=== PATIENT | male | born 1955 | race Caucasian/White ===

== ENCOUNTER → 2016-07-05 | Outpatient (CLI) | payer OTHER ==
[~2016-07-05] VITALS: Ht 185.4 cm; Wt 127.0 kg
[~2016-07-05] MED LIST: ALEV220C2 PO; AMLO25TA PO; ATOR1TAB18 PO; BAYE325T12 PO; CARV3.12 PO; GABA300C3 PO; K-TA10TA2 PO; NS 1,000 ML IV SCH; OMEP20CA3 PO; PROPOFOL 200 MG/20 ML VIAL As Ordered ONE; ZOFR4TAB3 PO
--- NOTE | 2016-07-05 13:40 | ROOR ---
Patient Name: Adams Vega Procedure Date: 07/05/2016 1:25 PM Date of : 1955 Age: 60 Room: [facility] Gender: Male Note Status: Finalized Procedure: Colonoscopy Indications: High risk colon cancer surveillance: Personal history of colonic polyps, Last colonoscopy: April 2013 Providers: Jose ROSENBERG MD Referring MD: GENESIS BARBER MD Requesting Provider: Medicines: Monitored Anesthesia Care Complications: No immediate complications. Procedure: Pre-Anesthesia Assessment: - The heart rate, respiratory rate, oxygen saturations, blood pressure, adequacy of pulmonary ventilation, and response to care were monitored throughout the procedure. The Colonoscope was introduced through the anus and advanced to the terminal ileum, with identification of the appendiceal orifice and IC valve. The colonoscopy was performed without difficulty. The patient tolerated the procedure well. The quality of the bowel preparation was good. Findings: The perianal and digital rectal examinations were normal. Internal hemorrhoids were found during retroflexion. The hemorrhoids were medium-sized. The entire examined colon appeared normal on direct and retroflexion views. Impression: - Internal hemorrhoids. - The entire colon is normal on direct and retroflexion views. - No specimens collected. Recommendation: - Repeat colonoscopy in 5 years for surveillance based on personal history of previous adenomatous polyps. Jose Rosenberg MD Jose ROSENBERG MD 07/05/2016 1:40:18 PM This report has been signed electronically. Number of Addenda: 0 Note Initiated On: 07/05/2016 1:25 PM Estimated Blood Loss: Estimated blood loss: none.
[2016-07-05 14:00] VITALS: BP 161/93
== END | disposition home or self-care (01) ==
LOC: M OPP 11:45
PROVIDERS: ATTEND Internal Medicine Gastroenterology
DX: Z12.11 Encounter for screening for malignant neoplasm of colon (principal); K64.9 Unspecified hemorrhoids; Z80.0 Family history of malignant neoplasm of digestive organs; I10 Essential (primary) hypertension; H47.2 Optic atrophy; M54.2 Cervicalgia; M19.90 Unspecified osteoarthritis, unspecified site; Z88.0 Allergy status to penicillin; Z79.82 Long term (current) use of aspirin; E78.5 Hyperlipidemia, unspecified; M25.552 Pain in left hip; G47.30 Sleep apnea, unspecified; R06.83 Snoring; Z87.891 Personal history of nicotine dependence; Z79.899 Other long term (current) drug therapy; F19.10 Other psychoactive substance abuse, uncomplicated

== ENCOUNTER → 2017-06-15 | Outpatient (CLI) | payer OTHER ==
[2017-06-15 11:01] LABS: HEMATOCRIT 44.3 % (42.0-52.0)
[2017-06-15 11:36] LABS: IRON (FE) 71 UG/DL (65-175); PERCENT SATURATION 20.6 % (19.7-50.0); TOTAL IRON BINDING CAPACITY 344 UG/DL (250-450)
[2017-06-15 11:36] LABS: ALBUMIN 4.7 GM/DL (3.2-5.2)
[2017-06-15 11:40] LABS: ESTIMATED AVERAGE GLUCOSE 128 MG/DL (60-110); HEMOGLOBIN A1c 6.1 %
== END ==
LOC: M LAB 10:16
DX: Z79.899 Other long term (current) drug therapy (principal); M16.9 Osteoarthritis of hip, unspecified
CPT/HCPCS: 82040

== ENCOUNTER → 2017-07-15 | Outpatient (REF) | payer OTHER ==
[2017-07-15 11:55] LABS: BASO % 0.4 % (0.0-1.0); EOS # 0.3 10^3/uL (0.0-0.50); EOS % 3.6 % (0.0-3.0); HEMATOCRIT 43.5 % (42.0-52.0); HEMOGLOBIN 14.2 g/dl (14.0-18.0); IMMATURE GRANULOCYTE % 0.5 % (0-3.0); LYMPH # 1.9 10^3/uL (1.5-4.5); LYMPH % 20.4 % (24.0-44.0); MEAN CORPUSCULAR HEMOGLOBIN 30.1 pg (27.0-33.0); MEAN CORPUSCULAR HGB CONC 32.6 g/dl (32.0-36.5); MEAN CORPUSCULAR VOLUME 92.2 fl (80.0-96.0); MONO # 0.7 10^3/uL (0.0-0.8); MONO % 7.3 % (0.0-5.0); NEUTROPHILS # 6.3 10^3/uL (1.8-7.7); NEUTROPHILS % 67.8 % (36.0-66.0); PLATELET COUNT, AUTOMATED 291 10^3/uL (150-450); RED BLOOD COUNT 4.72 10^6/uL (4.30-6.10); RED CELL DISTRIBUTION WIDTH 12.8 % (11.5-14.5); WHITE BLOOD COUNT 9.3 10^3/uL (4.0-10.0)
[2017-07-15 12:12] LABS: ALBUMIN 4.2 GM/DL (3.2-5.2); ALBUMIN/GLOBULIN RATIO 1.45 (1.00-1.93); ALKALINE PHOSPHATASE 94 U/L (45-117); ALT/SGPT 41 U/L (12-78); ANION GAP 6 MEQ/L (8-16); AST/SGOT 17 U/L (7-37); BILIRUBIN,TOTAL 0.4 MG/DL (0.2-1.0); BLOOD UREA NITROGEN 16 MG/DL (7-18); CALCIUM LEVEL 8.8 MG/DL (8.8-10.2); CARBON DIOXIDE LEVEL 30 MEQ/L (21-32); CHLORIDE LEVEL 107 MEQ/L (98-107); CHOLESTEROL LEVEL 146 MG/DL (<200); CHOLESTEROL RISK RATIO 4.709 (<5); CREATININE FOR GFR 0.79 MG/DL (0.70-1.30); GLOMERULAR FILTRATION RATE > 60.0 (>49); GLUCOSE, FASTING 110 MG/DL (70-100); HDL CHOLESTEROL 31 MG/DL (>40); NON-HDL-C 115 MG/DL; POTASSIUM SERUM 4.7 MEQ/L (3.5-5.1); SODIUM LEVEL 143 MEQ/L (136-145); TOTAL PROTEIN 7.1 GM/DL (6.4-8.2); TRIGLYCERIDES LEVEL 235 MG/DL (<150)
== END ==
LOC: M LABDRAWP 11:41
DX: E78.5 Hyperlipidemia, unspecified (principal); R07.9 Chest pain, unspecified

== ENCOUNTER → 2017-12-10 | Outpatient (CLI) | payer OTHER | LOC: M RAD 09:52 | DX: R20.0 Anesthesia of skin (principal) | CPT/HCPCS: 72141 ==

== ENCOUNTER → 2018-06-13 | Outpatient (CLI) | payer OTHER ==
[~2018-06-13] MED LIST changes: -ATOR1TAB18 PO; +ATOR80TA59 PO; +GABA-843 PO; -GABA300C3 PO; -NS 1,000 ML IV SCH; -PROPOFOL 200 MG/20 ML VIAL As Ordered ONE; +ZOFR4TAB14 PO; -ZOFR4TAB3 PO
[2018-06-13 11:33] LABS: BASO # 0.1 10^3/uL (0.0-0.2); BASO % 0.8 % (0.0-1.0); EOS # 0.4 10^3/uL (0.0-0.50); EOS % 3.6 % (0.0-3.0); HEMATOCRIT 43.3 % (42.0-52.0); HEMOGLOBIN 14.8 g/dl (13.5-17.5); LYMPH # 2.2 10^3/uL (1.5-4.5); LYMPH % 22.2 % (24.0-44.0); MEAN CORPUSCULAR HEMOGLOBIN 31.3 pg (27.0-33.0); MEAN CORPUSCULAR HGB CONC 34.2 g/dl (32.0-36.5); MEAN CORPUSCULAR VOLUME 91.5 fl (80.0-96.0); MONO # 0.9 10^3/uL (0.0-0.8); MONO % 9.4 % (0.0-5.0); NEUTROPHILS # 6.3 10^3/uL (1.8-7.7); NEUTROPHILS % 63.6 % (36.0-66.0); PLATELET COUNT, AUTOMATED 301 10^3/uL (150-450); RED BLOOD COUNT 4.73 10^6/uL (4.30-6.10)
[2018-06-13 11:55] LABS: HEMOGLOBIN A1c 6.2 %
[2018-06-13 12:04] LABS: ALBUMIN 3.9 GM/DL (3.2-5.2); ALT/SGPT 27 U/L (12-78); BILIRUBIN,TOTAL 0.4 MG/DL (0.2-1.0); BLOOD UREA NITROGEN 17 MG/DL (7-18); CALCIUM LEVEL 9.2 MG/DL (8.8-10.2); CARBON DIOXIDE LEVEL 24 MEQ/L (21-32); CHLORIDE LEVEL 107 MEQ/L (98-107); CHOLESTEROL LEVEL 170 MG/DL (<200); CHOLESTEROL RISK RATIO 5.862 (<5); CREATININE FOR GFR 0.83 MG/DL (0.70-1.30); GLOMERULAR FILTRATION RATE > 60.0 (>49); GLUCOSE, FASTING 82 MG/DL (70-100); HDL CHOLESTEROL 29 MG/DL (>40); LDL CHOLESTEROL 102 MG/DL (<100); NON-HDL-C 141 MG/DL; POTASSIUM SERUM 4.3 MEQ/L (3.5-5.1); SODIUM LEVEL 139 MEQ/L (136-145); TRIGLYCERIDES LEVEL 196 MG/DL (<150)
[2018-06-14 16:16] LABS: HEPATITIS C VIRUS ABY INDEX 0.1 INDEX (<0.8)
== END ==
LOC: M LAB 10:56
PROVIDERS: ATTEND Hospitalist
DX: R73.03 Prediabetes (principal)

== ENCOUNTER 2019-02-07 16:24 | Outpatient (RCR) | payer OTHER ==
[~2019-02-07 16:24] MED LIST changes: -OMEP20CA3 PO; +OMEP20CA4 PO
== END 2019-02-19 ==
LOC: M PT 16:24
PROVIDERS: ATTEND Orthopaedic Surgery
DX: Z47.89 Encounter for other orthopedic aftercare (principal); M25.552 Pain in left hip

== ENCOUNTER → 2019-06-25 | Outpatient (CLI) | payer OTHER ==
[~2019-06-25] MED LIST changes: +OMEP1CAP73 PO; -OMEP20CA4 PO
[2019-06-25 08:13] LABS: HEMATOCRIT 45.7 % (42.0-52.0); HEMOGLOBIN 14.5 g/dl (13.5-17.5); MEAN CORPUSCULAR HGB CONC 31.7 g/dl (32.0-36.5); MEAN CORPUSCULAR VOLUME 94.4 fl (80.0-96.0); PLATELET COUNT, AUTOMATED 296 10^3/uL (150-450); RED BLOOD COUNT 4.84 10^6/uL (4.30-6.10); WHITE BLOOD COUNT 9.1 10^3/uL (4.0-10.0)
[2019-06-25 08:41] LABS: ALBUMIN 3.9 GM/DL (3.2-5.2); ALT/SGPT 32 U/L (12-78); BILIRUBIN,TOTAL 0.2 MG/DL (0.2-1.0); BLOOD UREA NITROGEN 12 MG/DL (7-18); CALCIUM LEVEL 8.8 MG/DL (8.8-10.2); CARBON DIOXIDE LEVEL 28 MEQ/L (21-32); CHLORIDE LEVEL 106 MEQ/L (98-107); CHOLESTEROL LEVEL 175 MG/DL (<200); CHOLESTEROL RISK RATIO 5.303 (<5); CREATININE FOR GFR 0.86 MG/DL (0.70-1.30); GLOMERULAR FILTRATION RATE > 60.0 (>49); GLUCOSE, FASTING 97 MG/DL (70-100); HDL CHOLESTEROL 33 MG/DL (>40); LDL CHOLESTEROL 111 MG/DL (<100); NON-HDL-C 142 MG/DL; POTASSIUM SERUM 4.7 MEQ/L (3.5-5.1); SODIUM LEVEL 142 MEQ/L (136-145); TRIGLYCERIDES LEVEL 157 MG/DL (<150)
== END ==
LOC: M LAB 07:05
PROVIDERS: ATTEND Family Medicine
DX: Z00.00 Encounter for general adult medical examination without abnormal findings (principal); E78.5 Hyperlipidemia, unspecified; I10 Essential (primary) hypertension; D50.8 Other iron deficiency anemias

== ENCOUNTER → 2020-04-28 | Outpatient (CLI) | payer SELFPAY | LOC: M LABSMTC 13:15 | PROVIDERS: ATTEND Pediatrics | DX: Z20.828 Contact with and (suspected) exposure to other viral communicable diseases (principal) ==

== ENCOUNTER 2020-10-11 16:40 | Inpatient (IN) | payer OTHER, SELFPAY ==
[~2020-10-11] VITALS: Ht 185.4 cm; Wt 122.1 kg
[~2020-10-11 16:40] MED LIST changes: +GABA-282 PO; -GABA-843 PO
[2020-10-11] MEDS ORDERED: LISI10TA22 PO (16:49)
[2020-10-11] MEDS ORDERED: CLOP75TA2 PO (16:49)
[2020-10-11 17:17] LABS: BASO % 0.1 % (0.0-1.0); EOS % 0.1 % (0.0-3.0); HEMATOCRIT 44.4 % (42.0-52.0); LYMPH # 2.1 10^3/uL (1.5-5.0); LYMPH % 9.3 % (24.0-44.0); MEAN CORPUSCULAR HEMOGLOBIN 31.4 pg (27.0-33.0); MEAN CORPUSCULAR HGB CONC 33.8 g/dl (32.0-36.5); MEAN CORPUSCULAR VOLUME 92.9 fl (80.0-96.0); MONO # 1.5 10^3/uL (0.0-0.8); MONO % 6.8 % (2.0-8.0); NEUTROPHILS # 18.3 10^3/uL (1.5-8.5); NEUTROPHILS % 82.9 % (36.0-66.0); PLATELET COUNT, AUTOMATED 413 10^3/uL (150-450); RED BLOOD COUNT 4.78 10^6/uL (4.30-6.10)
[2020-10-11] MEDS ORDERED: NS 1,000 ML IV SCH (17:25)
[2020-10-11] MEDS ORDERED: ONDANSETRON 4MG/2ML VIAL IV ONE (17:25)
[2020-10-11] MEDS ORDERED: KCL 10MEQ/100ML SWI (KRUN) 10 MEQ in IV 1 EA IV ONE (17:25)
[2020-10-11] MEDS ORDERED: ISOVUE-370 76% 100ML VIAL As Ordered ONE (17:32)
[2020-10-11 17:42] LABS: ALBUMIN 3.8 GM/DL (3.2-5.2); ALT/SGPT 25 U/L (12-78); BILIRUBIN,DIRECT 0.2 MG/DL (0.0-0.2); BILIRUBIN,TOTAL 0.7 MG/DL (0.2-1.0); CK-MB VALUE MASS < 1.0 NG/ML (<3.6); CPK CREATINE PHOSPHOKINASE 278 U/L (39-308); LIPASE 76 U/L (73-393); MB/CK RELATIVE INDEX 0.36 (< OR =4); TOTAL PROTEIN 7.3 GM/DL (6.4-8.2); TROPONIN I 0.03 NG/ML (< 0.10)
[2020-10-11 17:43] LABS: WHITE BLOOD COUNT 22.1 10^3/uL (4.0-10.0)
[2020-10-11 17:46] LABS: INR 1.04; PROTHROMBIN TIME 13.8 SECONDS (12.5-14.3)
--- NOTE | 2020-10-11 18:10 | REPVR ---
PROCEDURE INFORMATION: Exam: CT Abdomen And Pelvis With Contrast Exam date and time: 10/11/2020 5:37 PM Age: 65 years old Clinical indication: Vomiting; Additional info: Intractable vomiting TECHNIQUE: Imaging protocol: Computed tomography of the abdomen and pelvis with contrast. Radiation optimization: All CT scans at this facility use at least one of these dose optimization techniques: automated exposure control; mA and/or kV adjustment per patient size (includes targeted exams where dose is matched to clinical indication); or iterative reconstruction. Contrast material: ISOVUE 370; Contrast volume: 100 ml; Contrast route: INTRAVENOUS (IV); COMPARISON: CT ABD PELVIS WITH CONTRAST 02/10/2016 8:45 PM FINDINGS: Liver: There is a diffuse decrease in hepatic parenchymal density, consistent with steatosis. Gallbladder and bile ducts: Normal. No calcified stones. No ductal dilation. Pancreas: Normal. No ductal dilation. Spleen: Normal. No splenomegaly. Adrenal glands: Normal. No mass. Kidneys and ureters: Normal. No hydronephrosis. Stomach and bowel: There is xebo-ly-jwtvdfnv gastric distention with retained secretions. Clinical correlation to exclude gastroparesis or gastric outlet obstruction suggested. Also noted is a linear air-containing structure within the gastric body measuring 7.4 cm in length. Clinical correlation to exclude the possibility of an ingested foreign body suggested. Appendix: No evidence of appendicitis. Intraperitoneal space: Unremarkable. No free air. No significant fluid collection. Vasculature: Atherosclerotic infrarenal abdominal aorta expanded to 3 cm consistent with a mild aneurysm. Lymph nodes: Unremarkable. No enlarged lymph nodes. Urinary bladder: Unremarkable as visualized. Reproductive: The prostate gland demonstrates mild hyperplasia. Bones/joints: Lumbarized 1st sacral segment. Stable mild compression deformity of T12. Mild central spinal stenosis at L2-L3, severe central spinal stenosis at L3-L4 and L4-L5. Moderate central spinal stenosis with prominent posterior intervertebral osteophytes L5-S1. 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 Soft tissues: There is a small umbilical hernia. There is no evidence of incarceration. IMPRESSION: 1. There is a diffuse decrease in hepatic parenchymal density, consistent with steatosis. 2. There is jziq-pr-uycbaest gastric distention with retained secretions. Clinical correlation to exclude gastroparesis or gastric outlet obstruction suggested. Also noted is a linear air-containing structure within the gastric body measuring 7.4 cm in length. Clinical correlation to exclude the possibility of an ingested foreign body suggested. 3. Atherosclerotic infrarenal abdominal aorta expanded to 3 cm consistent with a mild aneurysm. 4. Mild prostatic hyperplasia. Electronically signed by: Andry Quiroz On 10/11/2020 18:10:04 PM
[2020-10-11] MEDS ORDERED: VITMTA PO (18:45)
[2020-10-11] MEDS ORDERED: CARV6.25 PO (18:45)
--- NOTE | 2020-10-11 19:19 | HPEPDOC ---
[facility] Medical History & Physical Date of Admission October 11, 2020 Date of Service: October 11, 2020 Primary Care Physician: RONEL CAGLE MD Attending Physician: DIANE SALAS MD History and Physical TIME OF SERVICE: 755pm CHIEF COMPLAINT: vomiting HISTORY OF PRESENT ILLNESS: This 65 yr old M begun vomiting yellow / brown fluid 4 days ago; yesterday he felt better and was able to retain some soft food but today he had several episodes of black vomitus (has pictures on his phone) associated with fevers, chills & sweating therefore he decided to come to the hospital. His last BM was on Tue, he denies having abdominal pain, bloody or dark tarry stools. REVIEW OF SYSTEMS: 12-point review of systems negative except as listed in HPI PAST MEDICAL/ SURGICAL HISTORY: essential HTN, CAD w stents (denies ACS), DLP, hepatic steatosis, GERD, BPH, AAA (3cm), obesity, ION (not compliant w CPAP), L hip repair, tonsillectomy w adenoidectomy SOCIAL HISTORY: he uses THC products but denies smoking tobacco or drinking alcohol FAMILY HISTORY: Colon cancer, CAD, DM ALLERGIES: Please see below. HOME MEDICATIONS: Please see below. PHYSICAL EXAMINATION: Vital Signs Date Time Temp Pulse Resp B/P (MAP) Pulse Ox O2 Delivery O2 Flow Rate FiO2 10/11/20 16:41 97.6 115 20 161/98 (119) 97 Room Air GENERAL APPEARANCE: well-nourished and developed / NAD HEENT: EOMI / no scleral icterus / mucus membranes dry CARDIOVASCULAR: tachycardic / NMRG/ no LE edema LUNGS: CTAB on RA ABDOMEN: contour obese/ soft / he doesnt grimace w palpation MUSCULOSKELETAL: NCAT/ CHAVA x 4 INTEGUMENT: not pale flushed or jaundice NEUROLOGICAL: CN 2-12 grossly intact / speech not dysarthric PSYCHIATRIC: A&O x 3/ able to understand and follow all commands LABORATORY DATA: Immature Granulocyte % (Auto) 0.8, Neutrophils (%) (Auto) 82.9H, Lymphocytes (%) (Auto) 9.3L, Monocytes (%) (Auto) 6.8, Eosinophils (%) (Auto) 0.1, Basophils (%) (Auto) 0.1, Neutrophils # (Auto) 18.3H, Lymphocytes # (Auto) 2.1, Monocytes # (Auto) 1.5H, Eosinophils # (Auto) 0.0, Basophils # (Auto) 0.0, Nucleated Red Blood Cells % (auto) 0.0, Total Bilirubin 0.7, Direct Bilirubin 0.2, Aspartate Amino Transf (AST/SGOT) 16, Alanine Aminotransferase (ALT/SGPT) 25, Alkaline Phosphatase 69, Total Creatine Kinase 278, Creatine Kinase MB < 1.0, Creatine Kinase MB Relative Index 0.36, Troponin I 0.03, Total Protein 7.3, Albumin 3.8, Albumin/Globulin Ratio 1.1, Lipase 76 10/11/20 17:12: POC Glucose (Misc Panel) 167H, POC Sodium (Misc Panel) 137, POC Potassium (Misc Panel) 3.2L, POC Chloride (Misc Panel) 97L, POC Total CO2 (Misc Panel) 26.0, POC Blood Urea Nitrogen (Misc Panel 40H, POC Ionized Calcium (Misc Panel) 4.6, POC Creatinine (Misc Panel) 1.1, POC Hematocrit (Misc Panel) 45.0 10/11/20 17:27: Prothrombin Time 13.8, Prothromb Time International Ratio 1.04, Lactic Acid Level 3.6*H IMAGING: CT abd/pelvis IMPRESSION: 1. There is a diffuse decrease in hepatic parenchymal density, consistent with steatosis. 2. There is aktz-rg-nreqpkgs gastric distention with retained secretions. Clinical correlation to exclude gastroparesis or gastric outlet obstruction suggested. Also noted is a linear air-containing structure within the gastric body measuring 7.4 cm in length. Clinical correlation to exclude the possibility of an ingested foreign body suggested. 3. Atherosclerotic infrarenal abdominal aorta expanded to 3 cm consistent with a mild aneurysm. 4. Mild prostatic hyperplasia. MICROBIOLOGY: respiratory panel neg ASSESSMENT: is a 65 yr old w HTN, CAD w stents, DLP, hepatic steatosis, GERD, BPH, AAA (3cm) & obesity who is admitted for evaluation of SIRs vs Sepsis, UGIB & possible gastric outlet obstruction. PLAN: 1 SIRs vs Sepsis 2/2 GI source SIRS criteria: HR >90 / WBC >12 Lactic acid >2 Plan: admit to med surg qSOFA score = 0 not high risk / telemetry / repeat lactic acid / Meropenem / switch to lactate ringers /f/u blood cx, UA w culture / Acetaminophen PRN for fever / target MAP at of least 65 to 70 / f/u Is and Os with target UOP of at least 0.5 ml/kg/H / f/u FSBS w target serum glucose 140- 180 while acutely ill 2 UGIB May be due to: stomach CA, PUD, or other condition TBD -[place]-Blatch[place] Score to identify low risk UGIB = 5 points = A GBS greater than zero suggests a High Risk GI bleed that is likely to require medical interventionnsfusion, endoscopy, or surgery. Plan: ask RNs to place 2 large bore IVs & check orthostats / start PPI 40mg IV BID for 72 H, then switch to PO after 72 H (to decrease rate of re-bleeding) / start octreotide drip (he has a hx of alcohol use) / trend Hg (keep Hg >8 bc of hx of CAD) / type & screen, f/u iron studies / check H pylori stool antigen (if it is positive he will need to c/w PPIs along with bismuth, metronidazole and tetracycline (PBMT) or PPI, amoxicillin, metronidazole and clindamycin (P[facility]) for 14 days total) / hold Plavix / f/u w Gen Surg for upper GI series and EGD 3 Gastric outlet obstruction ? Plan: NPO w IVF / NG to LIS / omeprazole 4 Essential HTN Plan: Atorvastatin 5 CAD w stents / DLP Plan: Atorvastatin 6 Obesity Complicates care Plan: f/u A1C / the patient can f/u w his PCP for sleep apnea screening, nurse case manager consult, to discuss staring Saxenda, which is indicated in patients with a BMI >27 with co-existing DM, HTN or dyslipidemia to help with weight control as an adjunct to exercise DVT px w SCDs bc of UGIB Dispo: home after at least 2 midnights stay Home Medications Scheduled Atorvastatin Calcium (Atorvastatin Calcium) 80 Mg Tab, 80 MG PO DAILY Carvedilol (Carvedilol) 6.25 Mg Tablet, 6.25 MG PO BID Clopidogrel Bisulfate (Clopidogrel) 75 Mg Tablet, 75 MG PO DAILY Lisinopril (Lisinopril) 10 Mg Tablet, 10 MG PO DAILY Multivitamins (Thera M Plus Tablet) 1 Each Tablet, 1 TAB PO DAILY Allergies Coded Allergies: Penicillins (Verified Allergy, Unknown, 10/11/20) A-FIB/CHADSVASC A-FIB History Current/History of A-Fib/PAF?: No Current PO Anticoag Therapy: No DIANE SALAS MD October 11, 2020 19:19
[2020-10-11] MEDS ORDERED: ACETAMINOPHEN TAB 650MG DOSE (2X325MG) PO PRN (19:20)
[2020-10-11] MEDS: LR 1,000 ML IV SCH (19:20)
[2020-10-11 19:24] LABS: RSV AMPLIFICATION NEGATIVE (NEGATIVE)
[2020-10-11 20:40] LABS: INR 1.06
[2020-10-11] MEDS ORDERED: OCTREOTIDE ACETATE 100MCG/ML VIAL (J2354 PER 25MCG) IV ONE (21:15)
[2020-10-11] MEDS ORDERED: OCTREOTIDE ACETATE 1,200 MCG in NS 238.8 ML IV SCH (21:45)
[2020-10-11 22:00] VITALS: BP 140/93
[2020-10-11] MEDS ORDERED: HEPARIN SOD (PORCINE) 5000UNITS/ML 1ML VIAL/SYRINGE SC SCH (22:00)
[2020-10-11] MEDS: MEROPENEM INJ 1 GM in IV 1 EA IV SCH ×2 (22:21→23:14)
[2020-10-11] MEDS: CARVedilol 6.25 MG TAB PO SCH (22:22)
[2020-10-11] MEDS: PANTOPRAZOLE 40MG VIAL (C9113 PER 1) IV SCH (22:22)
[2020-10-11] MEDS: ONDANSETRON 4MG/2ML VIAL IV PRN (22:31)
[2020-10-11] MEDS: SUCRALFATE 1 GM TAB PO SCH (23:14)
[2020-10-12 00:15] VITALS: BP_SYST 154; BP_SYST 164; BP_SYST 174; BP_DIAS 100; BP_DIAS 101; BP_DIAS 84
[2020-10-12] MEDS: LR 1,000 ML IV SCH ×3 (05:17→20:55)
[2020-10-12] MEDS: SUCRALFATE 1 GM TAB PO SCH ×4 (05:29→23:47)
[2020-10-12 06:00] VITALS: BP 148/90
--- NOTE | 2020-10-12 06:23 | REPVR ---
PROCEDURE INFORMATION: Exam: XR Chest Exam date and time: 10/12/20 (3:43am) Age: 65 years old Clinical indication: Confirm NG tube position TECHNIQUE: Imaging protocol: Portable CXR Views: 1 view COMPARISON: Abdomen plain films + CXR of 02/10/16 FINDINGS: Lungs: No consolidation. Minimal linear stranding near the left lung base (probable atelectasis and/or scarring). Pleural spaces: Unremarkable. No pleural effusions. No pneumothorax. Heart/Mediastinum: Unremarkable. No cardiomegaly. Bones/joints: Unremarkable. Other findings: Enteric tube faintly seen, with its tip in the proximal stomach. The distal side hole is probably at or just beyond the E-G junction level. IMPRESSION: Minimal nonspecific linear stranding near the left lung base (see comments above). No consolidation. Enteric tube faintly seen, with its tip in the proximal stomach. The distal side hole is probably at or just beyond the E-G junction level. Electronically signed by: Joan Menard On 10/12/2020 06:22:27 AM
[2020-10-12 06:45] LABS: HEMATOCRIT 38.6 % (42.0-52.0); HEMOGLOBIN 12.9 g/dl (13.5-17.5); MEAN CORPUSCULAR HEMOGLOBIN 31.5 pg (27.0-33.0); MEAN CORPUSCULAR HGB CONC 33.4 g/dl (32.0-36.5); MEAN CORPUSCULAR VOLUME 94.4 fl (80.0-96.0); PLATELET COUNT, AUTOMATED 294 10^3/uL (150-450); RED BLOOD COUNT 4.09 10^6/uL (4.30-6.10); WHITE BLOOD COUNT 17.4 10^3/uL (4.0-10.0)
[2020-10-12 06:53] LABS: BLOOD UREA NITROGEN 34 MG/DL (7-18); CALCIUM LEVEL 8.2 MG/DL (8.8-10.2); CARBON DIOXIDE LEVEL 29 MEQ/L (21-32); CHLORIDE LEVEL 105 MEQ/L (98-107); CREATININE FOR GFR 0.86 MG/DL (0.70-1.30); GLOMERULAR FILTRATION RATE > 60.0 (>49); GLUCOSE, FASTING 126 MG/DL (70-100); POTASSIUM SERUM 3.7 MEQ/L (3.5-5.1); SODIUM LEVEL 142 MEQ/L (136-145)
[2020-10-12 06:54] LABS: HEMOGLOBIN A1c 5.8 %
[2020-10-12 07:29] LABS: BASO % 0.2 % (0.0-1.0); EOS % 0.1 % (0.0-3.0); HEMATOCRIT 38.7 % (42.0-52.0); LYMPH # 2.6 10^3/uL (1.5-5.0); LYMPH % 15.4 % (24.0-44.0); MEAN CORPUSCULAR HEMOGLOBIN 31.5 pg (27.0-33.0); MEAN CORPUSCULAR HGB CONC 33.6 g/dl (32.0-36.5); MEAN CORPUSCULAR VOLUME 93.7 fl (80.0-96.0); MONO # 1.5 10^3/uL (0.0-0.8); MONO % 8.5 % (2.0-8.0); NEUTROPHILS # 12.8 10^3/uL (1.5-8.5); NEUTROPHILS % 75.3 % (36.0-66.0); PLATELET COUNT, AUTOMATED 323 10^3/uL (150-450); RED BLOOD COUNT 4.13 10^6/uL (4.30-6.10)
--- NOTE | 2020-10-12 07:48 | ECGEPIP ---
[facility] - ED Test Date: 2020-10-11 Pat Name: INDIRA MCCURDY Department: Room: - Gender: Male Material Requirements Planning Manager: LEIDA : 1955 Requested By: Karen Arndt Order Number: [id number] Reading MD: Gregory Vickers Measurements Intervals [place] Rate: 101 P: 53 GA: 160 QRS: 11 QRSD: 94 T: 59 QT: 368 QTc: 477 Interpretive Statements Sinus tachycardia Inferior infarct , age undetermined POSSIBLE INCOMPLETE RIGHT BUNDLE BRANCH BLOCK NO PRIORS FOR COMPARISON Electronically Signed on 10-12-2020 7:48:04 EDT by Gregory Vickers
[2020-10-12 07:51] LABS: ALBUMIN 3.5 GM/DL (3.2-5.2); ALT/SGPT 22 U/L (12-78); BILIRUBIN,TOTAL 0.6 MG/DL (0.2-1.0); BLOOD UREA NITROGEN 34 MG/DL (7-18); CALCIUM LEVEL 8.3 MG/DL (8.8-10.2); CARBON DIOXIDE LEVEL 29 MEQ/L (21-32); CHLORIDE LEVEL 105 MEQ/L (98-107); CREATININE FOR GFR 0.87 MG/DL (0.70-1.30); GLOMERULAR FILTRATION RATE > 60.0 (>49); GLUCOSE, FASTING 131 MG/DL (70-100); POTASSIUM SERUM 3.4 MEQ/L (3.5-5.1); SODIUM LEVEL 140 MEQ/L (136-145); TOTAL PROTEIN 6.6 GM/DL (6.4-8.2)
[2020-10-12] MEDS ORDERED: MEROPENEM INJ 2 GM in NS 100 ML IV SCH (09:00)
[2020-10-12] MEDS: PANTOPRAZOLE 40MG VIAL (C9113 PER 1) IV SCH ×2 (09:54→21:19)
[2020-10-12] MEDS: CARVedilol 6.25 MG TAB PO SCH ×2 (09:54→21:19)
[2020-10-12] MEDS: ONDANSETRON 4MG/2ML VIAL IV PRN ×2 (12:44→17:32)
[2020-10-12 14:00] VITALS: BP 113/63
--- NOTE | 2020-10-12 14:17 | IPNPDOC ---
Text Note Date of Service The patient was seen on 10/12/20. NOTE GENERAL APPEARANCE: well-nourished and developed, NAD HEENT: EOMI, anicterus, moist mucus membranes CARDIOVASCULAR: RRR, no m/r/g LUNGS: CTAB on RA ABDOMEN: Obese, soft, NTND EXT: WWP, no LE edema NEUROLOGICAL: CN 2-12 grossly intact, speech not dysarthric, moving all 4 extre mities with full strength and no noted asymmetrical weakness PSYCHIATRIC: A&O x 3, able to understand and follow all commands LABORATORY DATA: WBC 17 Hgb 13. platelets 323 na 140 K 3.4 (repleted in fluids) Cr 0.87 IMAGING: CT abd/pelvis: 1. There is a diffuse decrease in hepatic parenchymal density, consistent with steatosis. 2. There is dciq-da-ehuuhkyk gastric distention with retained secre tions. Clinical correlation to exclude gastroparesis or gastric outlet obstruction suggested. Also noted is a linear air-containing structure within the gastric body measuring 7.4 cm in length. Clinical correlation to exclude the possibility of an ingested foreign body suggested. 3. Atherosclerotic infrarenal abdominal aorta expanded to 3 cm consistent with a mild aneurysm. 4. Mild prostatic hyperplasia. MICROBIOLOGY: respiratory panel neg ASSESSMENT: is a 65 yr old w HTN, CAD w stents, DLP, hepatic steatosis, GERD, BPH, AAA (3cm) & obesity who is admitted for evaluation of SIRs vs Sepsis, UGIB & possible gastric outlet obstruction. PLAN: 1 SIRs vs Sepsis 2/2 GI source SIRS criteria: HR >90 / WBC >12 Lactic acid >2 -was placed on Meropenem due to allergies, will continue for now -will dc LR at this time -f/u blood cx -Acetaminophen PRN for fever 2 Potential UGIB -Possibly due to gastritis, given history of GERD, PUD, or other more concern pathology such as malignancy -Surgery consulted given the CT findings above, suggested upper GI series for gastric outlet obstruction investigation and will place on clears and closely monitor for UGIB and BID H/H for potential need for urgent EGD -hold Plavix 3 Potential gastric outlet obstruction? -BID PPI IV -clears diet -sucralfate QID -DC octreotide gtt -DC NGT -Dr. Cano consulted, pending upper GI series on 10/13 4 Essential HTN -continue home med 5 CAD w stents / DLP -Atorvastatin -Need to discuss when he had the last stent placed and the type of stent to assess the risk of holding his plavix 6 Obesity Complicates care Plan: f/u A1C / the patient can f/u w his PCP for sleep apnea screening, base draw operator consult, to discuss staring Saxenda, which is indicated in patients with a BMI >27 with co-existing DM, HTN or dyslipidemia to help with weight control as an adjunct to exercise DVT px w SCDs bc of UGIB Dispo: home after at least 2 midnights stay VS,Fishbone, I+O VS, Fishbone, I+O Laboratory Tests 10/11/20 17:08 10/11/20 23:04 10/12/20 05:28 10/12/20 07:13 Vital Signs Date Time Temp Pulse Resp B/P (MAP) Pulse Ox O2 Delivery O2 Flow Rate FiO2 10/12/20 06:00 97.5 86 20 148/90 (109) 95 Room Air I&O- Last 24 Hours up to 6 AM 10/12/20 06:00 Intake Total 2425 ml Output Total 850 ml Balance 1575 ml DENNY MINER MD October 12, 2020 09:36
[2020-10-12] MEDS: MEROPENEM INJ 1 GM in IV 1 EA IV SCH ×2 (21:19→22:07)
[2020-10-12 22:00] VITALS: BP 157/82
[2020-10-13] MEDS: LR 1,000 ML IV SCH ×3 (05:16→22:00)
[2020-10-13] MEDS: SUCRALFATE 1 GM TAB PO SCH ×3 (05:37→17:59)
[2020-10-13 06:00] VITALS: BP 154/82
[2020-10-13 07:18] LABS: HEMATOCRIT 34.4 % (42.0-52.0); HEMOGLOBIN 11.2 g/dl (13.5-17.5); MEAN CORPUSCULAR HEMOGLOBIN 30.9 pg (27.0-33.0); MEAN CORPUSCULAR HGB CONC 32.6 g/dl (32.0-36.5); MEAN CORPUSCULAR VOLUME 94.8 fl (80.0-96.0); PLATELET COUNT, AUTOMATED 282 10^3/uL (150-450); RED BLOOD COUNT 3.63 10^6/uL (4.30-6.10); WHITE BLOOD COUNT 12.6 10^3/uL (4.0-10.0)
[2020-10-13 07:39] LABS: BLOOD UREA NITROGEN 19 MG/DL (7-18); CALCIUM LEVEL 8.3 MG/DL (8.8-10.2); CARBON DIOXIDE LEVEL 29 MEQ/L (21-32); CHLORIDE LEVEL 109 MEQ/L (98-107); CREATININE FOR GFR 0.73 MG/DL (0.70-1.30); GLOMERULAR FILTRATION RATE > 60.0 (>49); GLUCOSE, FASTING 91 MG/DL (70-100); POTASSIUM SERUM 3.8 MEQ/L (3.5-5.1); SODIUM LEVEL 143 MEQ/L (136-145)
[2020-10-13] MEDS ORDERED: E-Z-GAS II EFFERVESCENT PACKET (SODIUM BICARB./CITRIC ACID/SIMETHICONE) As Ordered ONE (09:51)
[2020-10-13] MEDS ORDERED: E-Z-PAQUE 96% w/w SUSP 176GM BTL As Ordered ONE (09:51)
[2020-10-13] MEDS ORDERED: E-Z-HD 98% w/w 340GM SUSP BTL As Ordered ONE (09:52)
[2020-10-13] MEDS: CARVedilol 6.25 MG TAB PO SCH ×2 (10:48→21:11)
[2020-10-13] MEDS: PANTOPRAZOLE 40MG VIAL (C9113 PER 1) IV SCH ×2 (10:49→21:11)
[2020-10-13] MEDS: ONDANSETRON 4MG/2ML VIAL IV PRN (11:16)
--- NOTE | 2020-10-13 13:11 | IPNPDOC ---
Text Note Date of Service The patient was seen on 10/13/20. NOTE Subjective: -Tolerating clears -Had UGI series this AM -No complaints at this time Objective: VITALS: see below GENERAL APPEARANCE: well-nourished and developed, NAD HEENT: EOMI, anicterus, moist mucus membranes CARDIOVASCULAR: RRR, no m/r/g LUNGS: CTAB on RA ABDOMEN: Obese, soft, NTND EXT: WWP, no LE edema NEUROLOGICAL: CN 2-12 grossly intact, speech not dysarthric, moving all 4 extremities with full strength and no noted asymmetrical weakness PSYCHIATRIC: A&O x 3, able to understand and follow all commands LABORATORY DATA: WBC 12.6 Hgb 11.2 Cr 0.73 IMAGING: CT abd/pelvis: 1. There is a diffuse decrease in hepatic parenchymal density, consistent with steatosis. 2. There is kxzd-vy-qbgdvlfl gastric distention with retained secretions. Clinical correlation to exclude gastroparesis or gastric outlet obstruction suggested. Also noted is a linear air-containing structure within the gastric body measuring 7.4 cm in length. Clinical correlation to exclude the possibility of an ingested foreign body suggested. 3. Atherosclerotic infrarenal abdominal aorta expanded to 3 cm consistent with a mild aneurysm. 4. Mild prostatic hyperplasia. MICROBIOLOGY: respiratory panel neg ASSESSMENT: is a 65 yr old w HTN, CAD w stents, DLP, hepatic steatosis, GERD, BPH, AAA (3cm) & obesity who is admitted for evaluation of SIRs vs Sepsis, UGIB & possible gastric outlet obstruction. PLAN: 1 SIRs vs Sepsis 2/2 GI source SIRS criteria: HR >90 / WBC >12 Lactic acid >2 -was placed on Meropenem due to allergies, will continue for now -f/u blood cx -Acetaminophen PRN for fever 2 Potential UGIB -Possibly due to gastritis, given history of GERD, PUD, or other more concern pathology such as malignancy -Surgery consulted given the CT findings above, suggested upper GI series for gastric outlet obstruction investigation and wclears and closely monitor for UGIB. f/u UGI series results, was recently done this AM -holding Plavix 3 Potential gastric outlet obstruction? -BID PPI IV -clears diet -sucralfate QID -Dr. Cano consulted, just had upper GI series 4 Essential HTN -continue home med 5 CAD w stents / DLP -Atorvastatin -Need to discuss when he had the last stent placed and the type of stent to assess the risk of holding his plavix 6 Obesity Complicates care Plan: f/u A1C / the patient can f/u w his PCP for sleep apnea screening, d ietician consult, to discuss staring Saxenda, which is indicated in patients with a BMI >27 with co-existing DM, HTN or dyslipidemia to help with weight control as an adjunct to exercise DVT px w SCDs bc of UGIB Dispo: home after at least 2 midnights stay VS,Fishbone, I+O VS, Fishbone, I+O Laboratory Tests 10/13/20 06:14 Vital Signs Date Time Temp Pulse Resp B/P (MAP) Pulse Ox O2 Delivery O2 Flow Rate FiO2 10/13/20 10:48 140/82 10/13/20 10:48 68 10/13/20 06:00 98.0 17 97 10/12/20 14:00 Room Air I&O- Last 24 Hours up to 6 AM 10/13/20 06:00 Intake Total 1950 ml Output Total 1775 ml Balance 175 ml DENNY MINER MD October 13, 2020 11:02
[2020-10-13 14:00] VITALS: BP 154/88
--- NOTE | 2020-10-13 14:59 | REP ---
INDICATION: r/o gastric outlet obstruction. COMPARISON: None TECHNIQUE: This procedure was performed by Naty Jacobson, [facility], under the direct supervision of Dr. Bryan. Images were reviewed with Dr. Bryan prior to dictation. Liquid barium and gas producing crystals were given in the erect position, as well as liquid barium in the prone oblique position in order to perform a double contrast upper GI examination. FINDINGS: The supervisor vine fruit farming film shows no organomegaly or pathological masses. The intestinal gas pattern is unremarkable. The oral and pharyngeal stages of deglutition were unremarkable. Esophageal transport is prompt and efficient and there is no evidence of esophagitis, stricture, or mucosal ring. There is no evidence of a hiatal hernia. There was no gastroesophageal reflux noted . The stomach richards are normally outlined. There is some fold thickening in the antrum of the stomach consistent with gastritis. Contrast flows freely out of the stomach into the small intestine. No gastric outlet obstruction is visualized. The duodenal richards are normally outlined. The mucosal folds are smooth and regular. There is no duodenitis, peptic ulcer disease or neoplasm. The visualized portion of the proximal small bowel appears normal in course and caliber. IMPRESSION: Fold thickening of the antrum of the stomach consistent with gastritis. Contrast flows freely from the stomach into the small intestine, no gastric outlet obstruction is visualized. 0.3 minutes of fluoroscopy time was utilized for this procedure. Some fluoroscopic images are performed with last image hold technology. These images require no additional radiation. <Electronically signed by Naty Jacobson > 10/13/20 [id number] <Electronically signed by Clarke Bryan > 10/13/20 [id number]
[2020-10-13] MEDS: MEROPENEM INJ 1 GM in IV 1 EA IV SCH ×2 (21:11→21:59)
[2020-10-13 22:00] VITALS: BP 158/92
[2020-10-14] MEDS: SUCRALFATE 1 GM TAB PO SCH ×3 (00:33→10:54)
[2020-10-14] MEDS: LR 1,000 ML IV SCH (05:43)
[2020-10-14 06:00] VITALS: BP 148/88
[2020-10-14 06:25] LABS: HEMATOCRIT 32.9 % (42.0-52.0); MEAN CORPUSCULAR HGB CONC 33.4 g/dl (32.0-36.5); MEAN CORPUSCULAR VOLUME 92.7 fl (80.0-96.0); PLATELET COUNT, AUTOMATED 252 10^3/uL (150-450); RED BLOOD COUNT 3.55 10^6/uL (4.30-6.10); WHITE BLOOD COUNT 10.9 10^3/uL (4.0-10.0)
[2020-10-14 06:49] LABS: BLOOD UREA NITROGEN 11 MG/DL (7-18); CALCIUM LEVEL 8.2 MG/DL (8.8-10.2); CARBON DIOXIDE LEVEL 27 MEQ/L (21-32); CHLORIDE LEVEL 109 MEQ/L (98-107); CREATININE FOR GFR 0.71 MG/DL (0.70-1.30); GLOMERULAR FILTRATION RATE > 60.0 (>49); GLUCOSE, FASTING 106 MG/DL (70-100); POTASSIUM SERUM 3.2 MEQ/L (3.5-5.1); SODIUM LEVEL 143 MEQ/L (136-145)
[2020-10-14 09:20] VITALS: BP 129/75
[2020-10-14] MEDS: PANTOPRAZOLE 40MG VIAL (C9113 PER 1) IV SCH (09:20)
[2020-10-14] MEDS: CARVedilol 6.25 MG TAB PO SCH (09:20)
[2020-10-14] MEDS ORDERED: MEROPENEM INJ 1 GM in IV 1 EA IV SCH (10:00)
[2020-10-14] MEDS ORDERED: CIPROFLOXACIN 500MG TABLET PO SCH (10:30)
[2020-10-14] MEDS ORDERED: PANT40TA29 PO (10:33)
[2020-10-14] MEDS ORDERED: SUCR1TA PO (10:33)
[2020-10-14] MEDS ORDERED: CIPR-249 PO (10:33)
[2020-10-14] MEDS ORDERED: POTASSIUM CHLORIDE 10 MEQ SR TABLET PO ONE (10:35)
--- NOTE | 2020-10-14 11:59 | DS.PDOC ---
Discharge Summary General Date of Admission October 11, 2020 at 19:19 Date of Discharge 10/14/2020 Attending Physician: DENNY MINER MD Discharge Summary PROCEDURES PERFORMED DURING STAY: None ADMITTING DIAGNOSES: N/V DISCHARGE DIAGNOSES: Gastritis UGIB likely 2/2 gastritis possible tear from persistent retching Gastroenteritis Essential HTN CAD w remote stents DLP hepatic steatosis GERD BPH AAA (3cm) obesity, ION (not compliant w CPAP) COMPLICATIONS/CHIEF COMPLAINT: Nausea And Vomiting, Sirs. HISTORY OF PRESENT ILLNESS: 65 yr old M who presented to the ED for 4d of N/V that started out bilious and later became coffee ground to black and was concerned about GIB with a report of associated fevers, chills & sweating therefore he decided to come to the hospital. He did not have ines abdominal pain. HOSPITAL COURSE: He was hemodynamically stable with Hgb of 13 at admission, was made NPO, surgery consulted and recommended medicine admission with UGI series after CT noted possible gastric outlet obstruction. N/V resolved and he had none in the hospital, he was placed on clears that he tolerated well. UGI series noted gastritis without evidence of obstruction and he was started on PPI BID and sucralfate and diet restored to regular that he tolerated well. He is now being discharged home to follow up with his PCP. Of note, given +SIRS with leukocytosis, fever, tachycardia and abdominal symptoms he was given meropenem with improvement of leukocytosis and resolution of symptoms and will now complete a 7d course with ciprofloxacin. DISCHARGE MEDICATIONS: Please see below. ALLERGIES: Please see below. PHYSICAL EXAMINATION ON DISCHARGE: VITAL SIGNS: Please see below. GENERAL APPEARANCE: well-nourished and developed, NAD HEENT: EOMI, anicteric, moist mucus membranes CARDIOVASCULAR: RRR, no m/r/g LUNGS: CTAB on RA ABDOMEN: Obese, soft, NTND EXT: WWP, no LE edema NEUROLOGICAL: CN 2-12 grossly intact, speech not dysarthric, moving all 4 extremities with full strength and no noted asymmetrical weakness PSYCHIATRIC: A&O x 3, able to understand and follow all commands LABORATORY DATA: please see below IMAGING: CT abd/pelvis: 1. There is a diffuse decrease in hepatic parenchymal density, consistent with steatosis. 2. There is [id number] gastric distention with retained secretions. Clinical correlation to exclude gastroparesis or gastric outlet obstruction suggested. Also noted is a linear air-containing structure within the gastric body measuring 7.4 cm in length. Clinical correlation to exclude the possibility of an ingested foreign body suggested. 3. Atherosclerotic infrarenal abdominal aorta expanded to 3 cm consistent with a mild aneurysm. 4. Mild prostatic hyperplasia. UGI series: (probable atelectasis and/or scarring). Pleural spaces: Unremarkable. No pleural effusions. No pneumothorax. Heart/Mediastinum: Unremarkable. No cardiomegaly. Bones/joints: Unremarkable. Other findings: Enteric tube faintly seen, with its tip in the proximal stomach. The distal side hole is probably at or just beyond the E-G junction level. IMPRESSION: Minimal nonspecific linear stranding near the left lung base (see comments above). No consolidation. Enteric tube faintly seen, with its tip in the proximal stomach. The distal side hole is probably at or just beyond the E-G junction level. CXR: Lungs: No consolidation. Minimal linear stranding near the left lung base (probable atelectasis and/or scarring). Pleural spaces: Unremarkable. No pleural effusions. No pneumothorax. Heart/Mediastinum: Unremarkable. No cardiomegaly. Bones/joints: Unremarkable. Other findings: Enteric tube faintly seen, with its tip in the proximal stomach. The distal side hole is probably at or just beyond the E-G junction level. IMPRESSION: Minimal nonspecific linear stranding near the left lung base (see comments above). No consolidation. Enteric tube faintly seen, with its tip in the proximal stomach. The distal side hole is probably at or just beyond the E-G junction level. PROGNOSIS: good ACTIVITY: As tolerated DIET: regular DISCHARGE PLAN: Home with close PCP follow up and GI follow up( has scheduled colonoscopy in november with Dr. Pompa, to discuss indication for EGD as well if persistent) DISPOSITION: Home DISCHARGE INSTRUCTIONS: protonix 40 BID, sucralfate QID ITEMS TO FOLLOWUP ON ON OUTPATIENT: Gastritis - protonix 40 BID, sucralfate QID Gastroenteritis resolution PCP follow up GI follow up per outpatient schedule DISCHARGE CONDITION: Stable TIME SPENT ON DISCHARGE: 46 minutes. Vital Signs/I&Os Vital Signs Date Time Temp Pulse Resp B/P (MAP) Pulse Ox O2 Delivery O2 Flow Rate FiO2 10/14/20 09:20 129/75 10/14/20 09:20 78 10/14/20 06:00 97.0 17 98 Room Air I&O- Last 24 Hours up to 6 AM 10/14/20 06:00 Intake Total 4610 ml Output Total 1400 ml Balance 3210 ml Laboratory Data Labs 24H Laboratory Tests 2 10/14/20 05:31: Nucleated Red Blood Cells % (auto) 0.0, Anion Gap 7L, Glomerular Filtration Rate > 60.0, Calcium Level 8.2L CBC/BMP Laboratory Tests 10/14/20 05:31 Microbiology Microbiology 10/11/20 Blood Culture - Preliminary, Resulted No Growth after 48 hours. All Specime... 10/11/20 Blood Culture - Preliminary, Resulted No Growth after 48 hours. All Specime... Discharge Medications Scheduled Atorvastatin Calcium (Atorvastatin Calcium) 80 Mg Tab, 80 MG PO DAILY, (Reported) Carvedilol (Carvedilol) 6.25 Mg Tablet, 6.25 MG PO BID, (Reported) Ciprofloxacin HCl (Cipro) 500 Mg Tablet, 500 MG PO Q12H Clopidogrel Bisulfate (Clopidogrel) 75 Mg Tablet, 75 MG PO DAILY, (Reported) Lisinopril (Lisinopril) 10 Mg Tablet, 10 MG PO DAILY, (Reported) Multivitamins (Thera M Plus Tablet) 1 Each Tablet, 1 TAB PO DAILY, (Reported) Pantoprazole Sodium (Pantoprazole Sodium) 40 Mg Tablet.dr, 40 MG PO BID Sucralfate (Sucralfate) 1 Gm Tablet, 1 GM PO Q6H Allergies Coded Allergies: Penicillins (Verified Allergy, Unknown, 10/11/20) DENNY MINER MD October 14, 2020 11:04
[2020-10-14] MEDS ORDERED: PANTOPRAZOLE 40MG TAB (PROTONIX) PO SCH (21:00)
== END 2020-10-14 12:40 | disposition home or self-care (01) | DRG 241 ==
LOC: M ED 16:40 → M ED INP 19:19 → ENRESERVDT 20:00 → ENRESERVTM 20:00 → M MSPAV 20:50
PROVIDERS: ADMIT Internal Medicine; ATTEND Internal Medicine
DX: K29.71 Gastritis, unspecified, with bleeding (principal); I10 Essential (primary) hypertension; K21.9 Gastro-esophageal reflux disease without esophagitis; N40.0 Benign prostatic hyperplasia without lower urinary tract symptoms; E66.9 Obesity, unspecified; G47.33 Obstructive sleep apnea (adult) (pediatric); Z91.19 Patient's noncompliance with other medical treatment and regimen; I25.10 Atherosclerotic heart disease of native coronary artery without angina pectoris; Z95.2 Presence of prosthetic heart valve; I71.4 Abdominal aortic aneurysm, without rupture; R11.15 Cyclical vomiting syndrome unrelated to migraine; Z79.899 Other long term (current) drug therapy; Z88.0 Allergy status to penicillin

== ENCOUNTER → 2020-10-27 | Outpatient (CLI) | payer OTHER ==
[~2020-10-27] MED LIST changes: +CARV6.25 PO; +CIPR-249 PO; +CLOP75TA2 PO; +LISI10TA22 PO; +PANT40TA29 PO; +SUCR1TA PO; +VITMTA PO
[2020-10-27 10:27] LABS: HEMATOCRIT 36.1 % (42.0-52.0); HEMOGLOBIN 11.8 g/dl (13.5-17.5); MEAN CORPUSCULAR HEMOGLOBIN 31.6 pg (27.0-33.0); MEAN CORPUSCULAR HGB CONC 32.7 g/dl (32.0-36.5); MEAN CORPUSCULAR VOLUME 96.5 fl (80.0-96.0); PLATELET COUNT, AUTOMATED 365 10^3/uL (150-450); RED BLOOD COUNT 3.74 10^6/uL (4.30-6.10); WHITE BLOOD COUNT 7.4 10^3/uL (4.0-10.0)
[2020-10-27 10:51] LABS: BLOOD UREA NITROGEN 11 MG/DL (7-18); CALCIUM LEVEL 8.8 MG/DL (8.8-10.2); CARBON DIOXIDE LEVEL 25 MEQ/L (21-32); CHLORIDE LEVEL 111 MEQ/L (98-107); CREATININE FOR GFR 0.73 MG/DL (0.70-1.30); GLOMERULAR FILTRATION RATE > 60.0 (>49); GLUCOSE, FASTING 94 MG/DL (70-100); MAGNESIUM LEVEL 2.2 MG/DL (1.8-2.4); POTASSIUM SERUM 4.3 MEQ/L (3.5-5.1); SODIUM LEVEL 142 MEQ/L (136-145)
== END ==
LOC: M LAB 09:29
PROVIDERS: ATTEND Hospitalist
DX: K29.30 Chronic superficial gastritis without bleeding (principal)

== ENCOUNTER → 2020-11-22 | Outpatient (CLI) | payer OTHER ==
[~2020-11-22] MED LIST changes: +ASPI325T3 PO
== END ==
LOC: M LABSMTC 11:05
PROVIDERS: ATTEND Anesthesiology
DX: Z20.828 Contact with and (suspected) exposure to other viral communicable diseases (principal); Z11.59 Encounter for screening for other viral diseases

== ENCOUNTER 2020-11-27 10:02 | Day surgery (SDC) | payer OTHER ==
[~2020-11-27] VITALS: Ht 185.4 cm; Wt 123.6 kg
[~2020-11-27 10:02] MED LIST changes: +NS 1,000 ML IV ONE
--- NOTE | 2020-11-27 12:39 | ROOR ---
Patient Name: Adams Vega Procedure Date: 11/27/2020 12:22 PM Date of : 1955 Age: 65 Room: [facility] Gender: Male Note Status: Finalized Procedure: Upper GI endoscopy Indications: Coffee-ground emesis, Hematemesis Providers: Jose Pompa MD Referring MD: GENESIS BARBER MD Requesting Provider: Medicines: Monitored Anesthesia Care Complications: No immediate complications. Procedure: Pre-Anesthesia Assessment: - The heart rate, respiratory rate, oxygen saturations, blood pressure, adequacy of pulmonary ventilation, and response to care were monitored throughout the procedure. The Endoscope was introduced through the mouth, and advanced to the second part of duodenum. The upper GI endoscopy was accomplished without difficulty. The patient tolerated the procedure well. Findings: A small healed ulcer was found in the prepyloric region of the stomach. The scar tissue was healthy in appearance. Biopsies were taken with a cold forceps for histology. The exam was otherwise without abnormality. Impression: - Scar in the prepyloric region of the stomach. Biopsied. - The examination was otherwise normal. Recommendation: - Await pathology results. - Telephone endoscopist for pathology results in 2 weeks. - Use a proton pump inhibitor PO daily. Procedure Code(s): --- Professional --- 83167, Esophagogastroduodenoscopy, flexible, transoral; with biopsy, single or multiple Diagnosis Code(s): --- Professional --- K92.0, Hematemesis K31.89, Other diseases of stomach and duodenum CPT copyright 2019 [employer]. All rights reserved. The codes documented in this report are preliminary and upon blue leather sorter review may be revised to meet current compliance requirements. Jose Pompa MD Jose Pompa MD 11/27/2020 12:39:01 PM Electronically signed by Jose Pompa MD Number of Addenda: 0 Note Initiated On: 11/27/2020 12:22 PM Estimated Blood Loss: Estimated blood loss: none.
--- NOTE | 2020-11-27 12:55 | ROOR ---
Patient Name: Adams Vega Procedure Date: 11/27/2020 12:23 PM Date of : 1955 Age: 65 Room: [facility] Gender: Male Note Status: Finalized Procedure: Colonoscopy Indications: Hematochezia Providers: Jose Pompa MD Referring MD: GENESIS BARBER MD Requesting Provider: Medicines: Monitored Anesthesia Care Complications: No immediate complications. Procedure: Pre-Anesthesia Assessment: - The heart rate, respiratory rate, oxygen saturations, blood pressure, adequacy of pulmonary ventilation, and response to care were monitored throughout the procedure. The Colonoscope was introduced through the anus and advanced to the terminal ileum, with identification of the appendiceal orifice and IC valve. The colonoscopy was performed without difficulty. The patient tolerated the procedure well. The quality of the bowel preparation was good. Findings: The perianal and digital rectal examinations were normal. Non-thrombosed internal hemorrhoids were found during retroflexion. The hemorrhoids were medium-sized and large. The entire examined colon appeared normal on direct and retroflexion views. Impression: - Non-thrombosed internal hemorrhoids. - The entire examined colon is normal on direct and retroflexion views. - No specimens collected. Recommendation: - Repeat colonoscopy in 5 years for surveillance. Procedure Code(s): --- Professional --- 95657, Colonoscopy, flexible; diagnostic, including collection of specimen(s) by brushing or washing, when performed (separate procedure) Diagnosis Code(s): --- Professional --- K92.1, Melena (includes Hematochezia) K64.8, Other hemorrhoids CPT copyright 2019 [employer]. All rights reserved. The codes documented in this report are preliminary and upon door assembler review may be revised to meet current compliance requirements. Jose Pompa MD Jose Pompa MD 11/27/2020 12:54:46 PM Electronically signed by Jose Pompa MD Number of Addenda: 0 Note Initiated On: 11/27/2020 12:23 PM Estimated Blood Loss: Estimated blood loss: none.
[2020-11-27] MEDS ORDERED: propofoL 200 MG/20 ML VIAL As Ordered ONE (13:02)
[2020-11-27] MEDS ORDERED: LIDOCAINE 2% 100MG/5ML SDV (FOR ANES.) As Ordered ONE (13:02)
[2020-11-27 13:20] VITALS: BP 141/81
== END 2020-11-27 13:23 | disposition home or self-care (01) ==
LOC: M OPP 10:02
PROVIDERS: ATTEND Internal Medicine Gastroenterology
DX: K92.1 Melena (principal); K64.8 Other hemorrhoids; K31.89 Other diseases of stomach and duodenum; K92.0 Hematemesis; Z88.0 Allergy status to penicillin; Z79.82 Long term (current) use of aspirin; Z79.899 Other long term (current) drug therapy

== ENCOUNTER → 2021-05-21 | Outpatient (CLI) | payer OTHER ==
[~2021-05-21] MED LIST changes: +ASPI-584 PO; -ASPI325T3 PO; -NS 1,000 ML IV ONE
== END ==
LOC: M LABSMTC 10:32
PROVIDERS: ATTEND Anesthesiology
DX: Z01.818 Encounter for other preprocedural examination (principal); Z11.52 Encounter for screening for COVID-19

== ENCOUNTER 2021-05-26 11:45 | Day surgery (SDC) | payer OTHER ==
[~2021-05-26] VITALS: Ht 182.9 cm; Wt 126.0 kg
[~2021-05-26 11:45] MED LIST changes: +NS 1,000 ML IV ONE
[2021-05-26] MEDS ORDERED: fentaNYL 100 MCG/2 ML INJECTION (J3010) As Ordered ONE (13:02)
[2021-05-26] MEDS ORDERED: propofoL 200 MG/20 ML VIAL As Ordered ONE (13:18)
[2021-05-26] MEDS ORDERED: LIDOCAINE 2% 100MG/5ML SDV (FOR ANES.) As Ordered ONE (13:18)
--- NOTE | 2021-05-26 13:50 | ROOR ---
Patient Name: Adams Vega Procedure Date: 05/26/2021 1:36 PM Date of : 1955 Age: 65 Room: [facility] Gender: Male Note Status: Finalized Procedure: Upper GI endoscopy Indications: Follow-up of acute gastric ulcer with hemorrhage Providers: Jose Pompa MD Referring MD: GENESIS BARBER MD Requesting Provider: Medicines: Monitored Anesthesia Care Complications: No immediate complications. Procedure: Pre-Anesthesia Assessment: - The heart rate, respiratory rate, oxygen saturations, blood pressure, adequacy of pulmonary ventilation, and response to care were monitored throughout the procedure. The Endoscope was introduced through the mouth, and advanced to the second part of duodenum. The upper GI endoscopy was accomplished without difficulty. The patient tolerated the procedure well. Findings: The esophagus was normal. The stomach was normal. The examined duodenum was normal. Impression: - Normal esophagus. - Normal stomach. (The prepyloric ulcer has healed completely) - Normal examined duodenum. - No specimens collected. Recommendation: - Continue present medications. - Observe patient's clinical course. Procedure Code(s): --- Professional --- 54277, Esophagogastroduodenoscopy, flexible, transoral; diagnostic, including collection of specimen(s) by brushing or washing, when performed (separate procedure) Diagnosis Code(s): --- Professional --- K25.0, Acute gastric ulcer with hemorrhage CPT copyright 2019 [employer]. All rights reserved. The codes documented in this report are preliminary and upon surgical nurse review may be revised to meet current compliance requirements. Jose Pompa MD Jose Pompa MD 05/26/2021 1:49:50 PM Electronically signed by Jose Pompa MD Number of Addenda: 0 Note Initiated On: 05/26/2021 1:36 PM Estimated Blood Loss: Estimated blood loss: none.
[2021-05-26 14:10] VITALS: BP 133/78
== END 2021-05-26 14:42 | disposition home or self-care (01) ==
LOC: M OPP 11:45
PROVIDERS: ATTEND Internal Medicine Gastroenterology
DX: K25.0 Acute gastric ulcer with hemorrhage (principal); Z79.82 Long term (current) use of aspirin; Z79.899 Other long term (current) drug therapy; Z88.0 Allergy status to penicillin
CPT/HCPCS: 43235; J3010

== ENCOUNTER → 2021-06-22 | Outpatient (CLI) | payer OTHER ==
[~2021-06-22] MED LIST changes: -NS 1,000 ML IV ONE
[2021-06-22 11:09] LABS: BLOOD UREA NITROGEN 9 MG/DL (7-18); CALCIUM LEVEL 8.9 MG/DL (8.8-10.2); CARBON DIOXIDE LEVEL 30 MEQ/L (21-32); CHLORIDE LEVEL 109 MEQ/L (98-107); CHOLESTEROL LEVEL 157 MG/DL (<200); CHOLESTEROL RISK RATIO 4.757 (<5); CREATININE FOR GFR 0.81 MG/DL (0.70-1.30); GLOMERULAR FILTRATION RATE > 60.0 (>49); GLUCOSE, FASTING 89 MG/DL (70-100); HDL CHOLESTEROL 33 MG/DL (>40); LDL CHOLESTEROL 97 MG/DL (<100); NON-HDL-C 124 MG/DL; POTASSIUM SERUM 4.8 MEQ/L (3.5-5.1); SODIUM LEVEL 141 MEQ/L (136-145); TRIGLYCERIDES LEVEL 134 MG/DL (<150)
[2021-06-22 11:11] LABS: HEMOGLOBIN A1c 5.5 %
[2021-06-22 12:38] LABS: TOTAL 25(OH) VITAMIN D 27.6 NG/ML (30.0-100.0)
== END ==
LOC: M PLALAB 08:36
PROVIDERS: ATTEND Student in an Organized Health Care Education/Training Program
DX: R73.03 Prediabetes (principal); E55.9 Vitamin D deficiency, unspecified; Z68.35 Body mass index [BMI] 35.0-35.9, adult; E66.9 Obesity, unspecified

== ENCOUNTER → 2021-10-20 | Outpatient (CLI) | payer OTHER ==
[2021-10-20 17:08] LABS: HEMOGLOBIN 13.8 g/dl (13.5-17.5); MEAN CORPUSCULAR HEMOGLOBIN 31.4 pg (27.0-33.0); MEAN CORPUSCULAR HGB CONC 32.9 g/dl (32.0-36.5); MEAN CORPUSCULAR VOLUME 95.5 fl (80.0-96.0); PLATELET COUNT, AUTOMATED 321 10^3/uL (150-450); WHITE BLOOD COUNT 9.5 10^3/uL (4.0-10.0)
[2021-10-20 17:40] LABS: BLOOD UREA NITROGEN 16 MG/DL (7-18); CALCIUM LEVEL 9.4 MG/DL (8.8-10.2); CARBON DIOXIDE LEVEL 30 MEQ/L (21-32); CHLORIDE LEVEL 108 MEQ/L (98-107); CHOLESTEROL LEVEL 164 MG/DL (<200); CHOLESTEROL RISK RATIO 5.466 (<5); CREATININE FOR GFR 0.98 MG/DL (0.70-1.30); FERRITIN 14 NG/ML (26-388); GLOMERULAR FILTRATION RATE > 60.0 (>49); GLUCOSE, FASTING 93 MG/DL (70-100); HDL CHOLESTEROL 30 MG/DL (>40); IRON (FE) 100 UG/DL (65-175); LDL CHOLESTEROL 94 MG/DL (<100); NON-HDL-C 134 MG/DL; PERCENT SATURATION 27.5 % (19.7-50.0); POTASSIUM SERUM 5.2 MEQ/L (3.5-5.1); SODIUM LEVEL 139 MEQ/L (136-145); TOTAL IRON BINDING CAPACITY 363 UG/DL (250-450); TRIGLYCERIDES LEVEL 202 MG/DL (<150)
== END ==
LOC: M PLALAB 14:27
PROVIDERS: ATTEND Student in an Organized Health Care Education/Training Program
DX: D50.8 Other iron deficiency anemias (principal); E78.00 Pure hypercholesterolemia, unspecified; I10 Essential (primary) hypertension; Z23 Encounter for immunization

== ENCOUNTER → 2021-10-20 | Outpatient (REF) | payer OTHER | LOC: M SFHCPLAZ 14:10 | PROVIDERS: ATTEND Family Medicine | DX: Z53.9 Procedure and treatment not carried out, unspecified reason (principal) ==

== ENCOUNTER → 2023-04-08 | Outpatient (CLI) | payer MEDICARE, MEDICAID ==
[~2023-04-08] MED LIST changes: -ASPI-584 PO; +ASPI325T62 PO; -K-TA10TA2 PO; +POTA-165 PO
[2023-04-08 13:12] LABS: APPEARANCE, URINE CLEAR (CLEAR); BACTERIA, URINE AUTO NEGATIVE (NEGATIVE); BILIRUBIN, URINE AUTO NEGATIVE (NEGATIVE); BLOOD, URINE BLOOD NEGATIVE (NEGATIVE); COLOR, URINE YELLOW (YELLOW); GLUCOSE, URINE (UA) AUTO NEGATIVE (NEGATIVE); KETONE, URINE AUTO NEGATIVE (NEGATIVE); LEUKOCYTE ESTERASE, URINE AUTO NEGATIVE (NEGATIVE); MUCUS, URINE SMALL (NEGATIVE); NITRITE, URINE AUTO NEGATIVE (NEGATIVE); PROTEIN, URINE AUTO NEGATIVE (NEGATIVE); RBC, URINE AUTO 0 /HPF (0-3); SPECIFIC GRAVITY URINE AUTO 1.015 (1.002-1.035); SQUAMOUS EPITHELIAL CELL UR AU 0 /HPF (0-6); WBC, URINE AUTO 1 /HPF (0-3)
[2023-04-08 13:36] LABS: HEMOGLOBIN A1c 5.6 % (4.0-6.0)
[2023-04-08 13:50] LABS: HEPATITIS B SURFACE ANTIBODY NEGATIVE (POSITIVE)
[2023-04-08 14:15] LABS: HIV 1&2 SCREEN NEGATIVE (NEGATIVE)
[2023-04-08 14:23] LABS: HEPATITIS C VIRUS ABY INDEX 0.07 INDEX (<0.8)
== END ==
LOC: M PLALAB 10:48
PROVIDERS: ATTEND Student in an Organized Health Care Education/Training Program
DX: Z11.3 Encounter for screening for infections with a predominantly sexual mode of transmission (principal); Z13.1 Encounter for screening for diabetes mellitus; Z79.899 Other long term (current) drug therapy

== ENCOUNTER → 2023-09-08 | Outpatient (REF) | payer MEDICARE | LOC: M SFHCPLAZ 14:23 | PROVIDERS: ATTEND Student in an Organized Health Care Education/Training Program | DX: I10 Essential (primary) hypertension (principal); E55.9 Vitamin D deficiency, unspecified; D50.8 Other iron deficiency anemias ==

== ENCOUNTER → 2024-02-02 | Outpatient (CLI) | payer MEDICARE ==
[~2024-02-02] MED LIST changes: -ASPI325T62 PO; +BAYE325T PO
[2024-02-02 09:53] LABS: BASO # 0.1 10^3/uL (0.0-0.2); BASO % 0.6 % (0.0-1.0); EOS # 0.3 10^3/uL (0.0-0.5); EOS % 3.4 % (0.0-3.0); HEMATOCRIT 41.2 % (42.0-52.0); HEMOGLOBIN 13.8 g/dl (13.5-17.5); LYMPH # 1.8 10^3/uL (1.5-5.0); LYMPH % 19.2 % (24.0-44.0); MEAN CORPUSCULAR HEMOGLOBIN 31.7 pg (27.0-33.0); MEAN CORPUSCULAR HGB CONC 33.5 g/dl (32.0-36.5); MEAN CORPUSCULAR VOLUME 94.5 fl (80.0-96.0); MONO # 0.7 10^3/uL (0.0-0.8); MONO % 7.1 % (2.0-8.0); NEUTROPHILS # 6.6 10^3/uL (1.5-8.5); NEUTROPHILS % 69.5 % (36.0-66.0); PLATELET COUNT, AUTOMATED 310 10^3/uL (150-450); RED BLOOD COUNT 4.36 10^6/uL (4.30-6.10); WHITE BLOOD COUNT 9.5 10^3/uL (4.0-10.0)
[2024-02-02 10:19] LABS: TOTAL IRON BINDING CAPACITY 357 UG/DL (250-425)
[2024-02-02 10:20] LABS: ALBUMIN 3.9 G/DL (3.2-5.2); ALKALINE PHOSPHATASE 72 U/L (46-116); ALT/SGPT 16 U/L (7.0-40); AST/SGOT 9 U/L (<34); BILIRUBIN,TOTAL 0.4 MG/DL (0.3-1.2); BLOOD UREA NITROGEN 13 MG/DL (9-23); CALCIUM LEVEL 9.6 MG/DL (8.3-10.6); CARBON DIOXIDE LEVEL 30 MMOL/L (20-31); CHLORIDE LEVEL 111 MMOL/L (98-107); CHOLESTEROL LEVEL 160 MG/DL (<200); CHOLESTEROL RISK RATIO 5.16 (<5); CREATININE FOR GFR 0.96 MG/DL (0.70-1.30); GLOMERULAR FILTRATION RATE > 60.0 (>49); GLUCOSE, FASTING 97 MG/DL (74-106); IRON (FE) 82 UG/DL (65-175); LDL CHOLESTEROL 86.4 MG/DL (<100); POTASSIUM SERUM 4.7 MMOL/L (3.5-5.1); SODIUM LEVEL 142 MMOL/L (136-145); TOTAL PROTEIN 6.6 G/DL (5.7-8.2); TRIGLYCERIDES LEVEL 213 MG/DL (<150)
[2024-02-02 10:22] LABS: FERRITIN 8.9 NG/ML (10.5-307.3)
== END ==
LOC: M PLALAB 07:40
PROVIDERS: ATTEND Student in an Organized Health Care Education/Training Program
DX: I10 Essential (primary) hypertension (principal); E55.9 Vitamin D deficiency, unspecified; D50.8 Other iron deficiency anemias

== ENCOUNTER → 2024-08-06 | Outpatient (CLI) | payer MEDICARE ==
[~2024-08-06] MED LIST changes: -BAYE325T12 PO; +BAYE325T2 PO; +GABA-1172 PO; -GABA-282 PO
[2024-08-06 10:41] LABS: BASO # 0.1 10^3/uL (0.0-0.2); BASO % 0.6 % (0.0-1.0); EOS # 0.3 10^3/uL (0.0-0.5); EOS % 3.4 % (0.0-3.0); HEMATOCRIT 41.8 % (42.0-52.0); HEMOGLOBIN 13.7 g/dl (13.5-17.5); LYMPH # 1.7 10^3/uL (1.5-5.0); LYMPH % 17.6 % (24.0-44.0); MEAN CORPUSCULAR HEMOGLOBIN 30.9 pg (27.0-33.0); MEAN CORPUSCULAR HGB CONC 32.8 g/dl (32.0-36.5); MEAN CORPUSCULAR VOLUME 94.1 fl (80.0-96.0); MONO # 0.6 10^3/uL (0.0-0.8); MONO % 6.5 % (2.0-8.0); NEUTROPHILS # 6.8 10^3/uL (1.5-8.5); NEUTROPHILS % 71.6 % (36.0-66.0); PLATELET COUNT, AUTOMATED 312 10^3/uL (150-450); RED BLOOD COUNT 4.44 10^6/uL (4.30-6.10); WHITE BLOOD COUNT 9.5 10^3/uL (4.0-10.0)
[2024-08-06 10:58] LABS: HEMOGLOBIN A1c 5.6 % (4.0-6.0)
[2024-08-06 11:05] LABS: PSA SCREENING 1.55 NG/ML (< 4.00)
[2024-08-06 11:07] LABS: IRON (FE) 114 UG/DL (65-175); PERCENT SATURATION 30.5 % (19.7-50.0); TOTAL IRON BINDING CAPACITY 374 UG/DL (250-425)
[2024-08-06 11:08] LABS: ALBUMIN 4.1 G/DL (3.2-5.2); ALKALINE PHOSPHATASE 65 U/L (40-129); ALT/SGPT 25 U/L (7.0-40); AST/SGOT 15 U/L (<34); BILIRUBIN,TOTAL 0.5 MG/DL (0.3-1.2); BLOOD UREA NITROGEN 22 MG/DL (9-23); CALCIUM LEVEL 9.2 MG/DL (8.3-10.6); CARBON DIOXIDE LEVEL 28 MMOL/L (20-31); CHLORIDE LEVEL 105 MMOL/L (98-107); CHOLESTEROL LEVEL 144 MG/DL (<200); CHOLESTEROL RISK RATIO 4.04 (<5); CREATININE FOR GFR 1.02 MG/DL (0.70-1.30); FREE T4 1.18 NG/DL (0.89-1.76); GLOMERULAR FILTRATION RATE > 60.0 (>49); GLUCOSE, FASTING 97 MG/DL (74-106); HDL CHOLESTEROL 35.6 MG/DL (>40); LDL CHOLESTEROL 80.8 MG/DL (<100); NON-HDL-C 108.4 MG/DL; POTASSIUM SERUM 4.9 MMOL/L (3.5-5.1); SODIUM LEVEL 143 MMOL/L (136-145); TOTAL PROTEIN 6.9 G/DL (5.7-8.2); TRIGLYCERIDES LEVEL 138 MG/DL (<150)
[2024-08-06 11:09] LABS: FERRITIN 12.6 NG/ML (10.5-307.3); THYROID STIMULATING HORMONE 3.593 uIU/ML (0.55-4.78)
[2024-08-06 11:20] LABS: CREATININE, URINE 258.2 MG/DL
== END ==
LOC: M PLALAB 07:46
PROVIDERS: ATTEND Student in an Organized Health Care Education/Training Program
DX: Z00.00 Encounter for general adult medical examination without abnormal findings (principal); Z12.5 Encounter for screening for malignant neoplasm of prostate; D50.8 Other iron deficiency anemias; Z79.899 Other long term (current) drug therapy; E55.9 Vitamin D deficiency, unspecified
CPT/HCPCS: 36415; 80053; 80061; 82043; 82652; 82728; 83036; 83550; 84439; 84443; 85025; G0103